=== PATIENT | male | born 1960 | race Hispanic/Latino ===

== ENCOUNTER 2020-06-07 20:40 | Emergency (ER) | payer OTHER ==
[~2020-06-07] VITALS: Ht 182.9 cm; Wt 95.3 kg
[2020-06-07 21:13] LABS: PLATELET COUNT 353 K/uL (142-355)
[2020-06-07 21:25] LABS: POTASSIUM 4.5 mmol/L (3.6-5.2)
[2020-06-08 00:29] VITALS: BP 143/73; TEMP 97.6
== END 2020-06-08 00:29 | disposition home or self-care (01) ==
LOC: ED 20:40
PROVIDERS: Family Medicine
DX: K21.9 Gastro-esophageal reflux disease without esophagitis (principal)
CPT/HCPCS: 36415; 80053; 81000; 82150; 83690; 85027; 96374; 96375; 99284; J2175; J2270; J2405; Q9963